=== PATIENT | male | born 1995 | race Caucasian/White ===

== ENCOUNTER 2017-03-27 21:07 | Emergency (ER) | payer OTHER ==
[~2017-03-27] VITALS: Ht 177.8 cm; Wt 103.3 kg
[2017-03-27 22:02] LABS: ADD MIUA? NO; BILIRUBIN NEGATIVE; BLOOD NEGATIVE; COLOR YELLOW ((YELLOW)); GLUCOSE (STRIP) NEGATIVE; KETONES NEGATIVE; LEUKOCYTES NEGATIVE; NITRITE NEGATIVE; PROTEIN (STRIP) NEGATIVE; SPECIFIC GRAVITY 1.024 (1.000-1.030); UCUL ADDED? NO; UROBILINOGEN 0.2 MG/DL (0.2-1.0)
[2017-03-27 23:27] VITALS: BP 161/81
== END 2017-03-27 23:28 | disposition home or self-care (01) ==
LOC: EME 21:07
PROVIDERS: Physician Assistant
DX: K40.90 Unilateral inguinal hernia, without obstruction or gangrene, not specified as recurrent (principal); F84.5 Asperger's syndrome
CPT/HCPCS: 81003; 99281; 99284

== ENCOUNTER 2017-04-02 14:22 | Emergency (ER) | payer OTHER ==
[~2017-04-02] VITALS: Ht 177.8 cm; Wt 101.2 kg
[2017-04-02 15:10] LABS: HEMATOCRIT 46.5 % (38.0-50.0); MCH 28.2 PG (29.0-34.0); MCHC 33.3 G/DL (30.0-36.0); MCV 84.5 FL (86-99); MEAN PLAT.VOLUME 9.7 uM^3 (9.0-12.4); PLATELET COUNT 332 K/uL (156-360); RBC DIS.WIDTH-CV 12.8 % (11.8-14.6); RBC DIS.WIDTH-SD 39.1 % (39-53); WHITE BLOOD COUNT 13.9 K/uL (4.1-10.2)
[2017-04-02 15:19] LABS: CHLORIDE 106 mEq/L (99-109); POTASSIUM 4.3 mEq/L (3.7-5.4); SODIUM 140 mEq/L (136-147)
[2017-04-02 15:22] LABS: GLUCOSE 111 mg/dL (70-99)
[2017-04-02 15:23] LABS: ANION GAP 10 MEQ/L (2-14)
[2017-04-02 15:24] LABS: TOTAL BILIRUBIN 0.5 mg/dL (0.0-1.0)
[2017-04-02 15:25] LABS: ALKALINE PHOSPHATASE 92 IU/L (3-129); GFR ESTIMATE (CALCULATED) > 59 mL/min/
[2017-04-02 15:27] LABS: UREA NITROGEN (BUN) 14 mg/dL (9-23)
[2017-04-02 16:34] LABS: ADD MIUA? NO; BILIRUBIN NEGATIVE; BLOOD NEGATIVE; COLOR YELLOW ((YELLOW)); GLUCOSE (STRIP) NEGATIVE; KETONES NEGATIVE; LEUKOCYTES NEGATIVE; NITRITE NEGATIVE; PROTEIN (STRIP) 30; SPECIFIC GRAVITY 1.019 (1.000-1.030); UCUL ADDED? NO; UROBILINOGEN 0.2 MG/DL (0.2-1.0)
[2017-04-02 17:17] VITALS: BP 134/89
[2017-04-02] MEDS ORDERED: ZOFRAN ODT4 MG PO (17:21)
== END 2017-04-02 17:26 | disposition home or self-care (01) ==
LOC: EME 14:22
DX: K40.90 Unilateral inguinal hernia, without obstruction or gangrene, not specified as recurrent (principal); R42 Dizziness and giddiness; R11.0 Nausea
CPT/HCPCS: 74176; 80053; 81003; 85027; 99281; 99284

== ENCOUNTER 2017-09-23 09:58 | Day surgery (SDC) | payer OTHER ==
[~2017-09-23] VITALS: Ht 177.8 cm; Wt 96.2 kg
[~2017-09-23 09:58] MED LIST: ADVIL200 MG PO; FLONASE ALLERG9.9 ML BOTH NARES; LEXAPRO10 MG PO; MIRALAX17 GM PO; PRILOSEC20 MG PO; TYLENOL EXTRA500 MG PO; ZOFRAN ODT4 MG PO; ZYRTEC10 M3 PO
[2017-09-23] MEDS ORDERED: CLONAZEPAM0.5 MG PO (10:23)
[2017-09-23 10:34] VITALS: BP 139/92
[2017-09-23] MEDS ORDERED: NORCO 5/3251 TABLET PO (14:28)
[2017-09-23 15:15] VITALS: BP 126/70
[2017-09-23 16:03] VITALS: BP 115/63
[2017-09-23 17:08] VITALS: BP 116/80
== END 2017-09-23 17:20 | disposition home or self-care (01) ==
LOC: SDC 09:58
PROC: 0YQ54ZZ Repair Right Inguinal Region, Percutaneous Endoscopic Approach (ICD-10-PCS; principal; 2017-09-23)
DX: K40.90 Unilateral inguinal hernia, without obstruction or gangrene, not specified as recurrent (principal); F84.5 Asperger's syndrome; K21.9 Gastro-esophageal reflux disease without esophagitis
CPT/HCPCS: C1727; C1781; J0131; J0330; J0690; J1100; J1170; J2250; J2405; J2710; J3010; J3475; J7643